=== PATIENT | male | born 2005 | race Caucasian/White ===

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

== ENCOUNTER 2024-12-04 13:32 | Emergency (ER) | payer OTHER, SELFPAY ==
--- NOTE | ~2024-12-04 | XR_ITS ---
XR hand LT min 3V 12/04/2024 14:19 INDICATION: Left hand pain PROCEDURE: 4 views left hand COMPARISON: No prior studies for comparison. FINDINGS: Fracture, dislocation or subluxation is not identified. The soft tissues appear within norm al limits. No foreign bodies are identified. IMPRESSION: 1: NO ACUTE BONE OR JOINT ABNORMALITY IDENTIFIED. Reviewed, dictated and finalized at location A.
[2024-12-04 13:43] VITALS: BP 102/79; PULSE 53; RESP 16; TEMP 36.7; O2SAT 98
--- OUTSIDE RECORDS SUMMARY | 2024-12-04 13:51 | XMS_ITS | Clinical Summary ---
Author Organization [facility] Address [address] [place] [address] Care Team Providers Care Java Manager Name Role Phone Dimple Belcher MD Primary Care Provider [phone] Allergies No known active allergies Medications albuterol HFA (PROVENTIL HFA,VENTOLIN HFA,PROAIR HFA) 90 mcg/actuation inhaler 02/11/2022 Active Active Problems Problem Noted Date Diagnosed Date Chronic midline low back pain without sciatica 0 11/10/2019 Pelvic obliquity 11/10/2019 RLQ abdominal pain 02/21/2018 Surgical History Surgery Date Site/Laterality Comments APPENDECTOMY Medical History Medical History Date Comments ADHD (attention deficit hyperactivity disorder) Family History Medical History Relation Name Comments Low Back Pain Father MRSA Father Hip Problems Mother Relation Name Status Comments Father Mother Social History Tobacco Use Types Packs/Day Years Used Date Smoking Tobacco: Never Alcohol Use Standard Drinks/Week Comments Never 0 (1 standard drink = 0.6 oz pur e alcohol) AUDIT-C Answer Date Recorded Q1: How often do you have a drink containing alc ohol? Never 10/27/2019 Average Number of Drinks Not on file 020 Frequency of Binge Drinking Not on file 06/2019 Personal Safety Answer Date Recorded Getting School Help Needed Not on file 06/07 Sex and Gender Information Value Date Recorded Sex Assigned at Not on file Legal Sex Male 2:27 PM CDT Gender Identity Not on file Sexual Orientation Not on file Obstetrics History Last Filed Vital Signs Vital Sign Reading Time Taken Comments Blood Pressure 102/68 06/07/2023 6:57 PM STYLE ADVISOR Pulse 74 06/07/2023 6:57 PM STYLE ADVISOR Temperature 36.6 C (97.9 F) 06/07/2023 6:57 PM STYLE ADVISOR Respiratory Rate 16 06/07/2023 6:57 PM STYLE ADVISOR Oxygen Saturation 98% 06/07/2023 6:57 PM STYLE ADVISOR Inhaled Oxygen Concentration - - Weight 63.5 kg (140 lb) 06/07/2023 6:57 PM STYLE ADVISOR Height 162.6 cm (5' 4) 06/07/2023 6:57 PM STYLE ADVISOR Body Mass Index 24.03 06/07/2023 6:57 PM STYLE ADVISOR Plan of Treatment Health Maintenance Due Date Last Done Comments Depression Screening 2003 Hepatitis C Screening 2003 HPV Vaccines (1 - Male 3-dos e series) 10/23/2018 Regular Well Visit/Exam 18-64 10/23/2021 Meningococcal B Vaccine (2 o f 2 - Trumenba SCDM 2-dose series) 05/15/2022 11/12/2021 Influenza Vaccine (#1) 2024 02/21/2018 DTaP/Tdap/Td Vaccine (7 - Td or Tdap) 11/17/2025 11/18/2015, 10/25/2007, 02/10/2005, Additional history exists Hepatitis B Screening Completed 05/01/2004 , 2003, 2003 Pneumococcal vaccine <65 Completed 005, 05/01/2004, 02/25/2004, Additional history exists Varicella Vaccines Completed 08/09/2008, 10/28/2004 Meningococcal Vaccine Completed 11/12/2021, 016 Insurance [employer] [facility] [employer] Address: [id number] [place] [address] [facility] [employer] Address: [address] [place] [address] [employer] Care Teams Java Manager Relationship Specialty Start Date End Date Dimple Belcher MD PCP - General 10/27/19
--- OUTSIDE RECORDS SUMMARY | 2024-12-04 13:51 | XMS_ITS | Continuity of Care Document ---
Author Name [facility] Organization [facility] Care Team Providers Care Twister Frame Tender Name Role Phone [facility] Unavailable Unavailable Procedures Combined list of: 1) Procedures from [facility] facilities going back up to thelast 18 months, not all VA non-surgical procedures are included; 2) All procedures from the Department of [facility] facilities. Procedure Procedure Type Code Date Perfomer Comments Sourc e No data available for this section Ambulatory P harmacy Social History Combined list of available smoking, tobacco, and other social history from [facility] facilities. Social History Type Response Date Comment Sourc e Sex Representation Male (finding) 01/13/2023 Un known Organization Sexual Orientation Ambula tory Pharmacy Gender identity Ambulator y Pharmacy Assessment and Plan Combined list of future care activities from [facility] facilities (e.g., assessment and plan notes, appointments, orders, and referrals). Additional future care activities may be listed in the Plan of Care section. Result Assessment and Plan Date Source Assessment and Plan Extracted from:Title : Education Note Author: BG SHARPE Date: 03/02/23 12/04/[address] [place] [address] Functional Status Combined list of recent functional and cognitive assessments recorded at [facility]VA Functional [place] Measurement (FIM) Scale: 1 = Total Assistance (Subject = 0% +), 2 = Maximal Assistance (Subject = 25% +), 3 = Moderate Assistance (Subject = 50% +), 4 = Minimal Assistance (Subject = 75% +), 5 = Supervision, 6 = Modified [place] (Device), 7 = Complete [place] (Timely, Safely). Assessment Date/Time Source Assessment Type Assessment Skill Assessment Score Assessment Details No data available for this section
--- NOTE | 2024-12-04 13:56 | ED_ITS ---
HPI - Extremity Injury (Upper) General Chief Complaint: Extremity Injury, Upper <Mariel DixonReji Kay APRN - Last Filed: 12/04/24 14:00> Stated Complaint: left hand injury <Marielcoleman Kay APRN - Last Filed: 12/04/24 14:00> Time Seen by Provider: 12/04/24 14:59 <Mariel Kay APRN - Last Filed: 12/04/24 14:00> Focused HPI: Patient is a 19-year-old male who presents to the ER after sustaining an injury to his left thumb. He reports he was working with tractor tires when a strap snapped back at him. Patient reports he immediately noticed blood on his L thumb, so he covered it up and came to the ER for evaluation. He is unsure when he had his last Tdap vaccine. Patient denies any medical history relevant to this ER visit. At time of examination patient rates the pain in his left thumb at a 2 to 3/10. GENERAL: Well-appearing, well-nourished, and in no acute distress. HEAD: Normocephalic, atraumatic. CHEST: Clear to auscultation. ?No respiratory distress. HEART: Regular rate and rhythm.? NEURO: ?Alert and oriented x3. Patient screened in triage and initial orders placed.? ?Additional care and disposition to be based upon?diagnostic testing and treatment. <Sumanth Meier MD - Last Filed: 12/04/24 20:29> History of Present Illness HPI narrative: Focused HPI: Patient is a 19-year-old male who presents to the ER after sustaining an injury to his left thumb. He reports he was working with tractor tires when a strap snapped back at him. Patient reports he immediately noticed blood on his L thumb, so he covered it up and came to the ER for evaluation. He is unsure when he had his last Tdap vaccine. Patient denies any medical history relevant to this ER visit. At time of examination patient rates the pain in his left thumb at a 2 to 3/10. GENERAL: Well-appearing, well-nourished, and in no acute distress. HEAD: Normocephalic, atraumatic. CHEST: Clear to auscultation. ?No respiratory distress. HEART: Regular rate and rhythm.? NEURO: ?Alert and oriented x3. Patient screened in triage and initial orders placed.? ?Additional care and disposition to be based upon?diagnostic testing and treatment. <Mariel Kay APRN - Last Filed: 12/04/24 14:00> I agree with the above HPI <Sumanth Meier MD - Last Filed: 12/04/24 20:29> Related Data Allergies/Adverse Reactions: Allergies Allergy/AdvReac Type Severity Reaction Status Date / Time No Known Allergies Allergy Verified 12/04/24 13:54 <Mariel Kay APRN - Last Filed: 12/04/24 14:00> Review of Systems Review of Systems: All systems reviewed & are unremarkable except as noted in HPI and below <Mariel Kay APRN - Last Filed: 12/04/24 14:00> Exam Narrative: APPEARANCE: Well appearing, no pain, no distress, well-nourished. HEAD: normocephalic, atraumatic. EYES: PERRLA/EOMI, conjunctivae clear. NOSE: Normal no drainage EARS:TMS clear with good light reflex. THROAT: Pharynx clear, no exudate. NECK: Supple. No adenopathy, no masses. RESPIRATORY: Airway patent, respirations nonlabored. Clear to auscultation bilaterally, no rales, rhonchi, wheezing. CARDIOVASCULAR: Regular rate and rhythm without murmurs rubs or gallops. ABDOMINAL: Soft, nontender, nondistended, normal bowel sounds MUSCULOSKELETAL: Moves all extremities. Strength/ROM intact, No edema, No calf tenderness. NEURO: Alert. Cranial nerves II through XII intact. Good gait. Good coordination SKIN: Laceration to dorsum of left hand <Sumanth Meier MD - Last Filed: 12/04/24 20:29> Course Vital Signs Vital signs: Vital Signs Temperature 98.1 F 12/04/24 13:43 Pulse Rate 53 L 12/04/24 13:43 Respiratory Rate 16 12/04/24 13:43 Blood Pressure 102/79 12/04/24 13:43 Pulse Oximetry 98 12/04/24 13:43 Oxygen Delivery Room Air 12/04/24 13:43 Temperature 98.1 F 12/04/24 13:43 Pulse Rate 74 12/04/24 16:40 Respiratory Rate 20 12/04/24 16:40 Blood Pressure 120/74 12/04/24 16:40 Pulse Oximetry 98 12/04/24 16:40 Oxygen Delivery Room Air 12/04/24 13:43 <Mariel Kay APRN - Last Filed: 12/04/24 14:00> Vital Signs Temperature 98.1 F 12/04/24 13:43 Pulse Rate 53 L 12/04/24 13:43 Respiratory Rate 16 12/04/24 13:43 Blood Pressure 102/79 12/04/24 13:43 Pulse Oximetry 98 12/04/24 13:43 Oxygen Delivery Room Air 12/04/24 13:43 Temperature 98.1 F 12/04/24 13:43 Pulse Rate 74 12/04/24 16:40 Respiratory Rate 20 12/04/24 16:40 Blood Pressure 120/74 12/04/24 16:40 Pulse Oximetry 98 12/04/24 16:40 Oxygen Delivery Room Air 12/04/24 13:43 <Sumanth Meier MD - Last Filed: 12/04/24 20:29> Procedures Laceration Laceration 1: Date: 12/04/24 <Sumanth Meier MD - Last Filed: 12/04/24 20:29> Time: 16:27 <Sumanth Meier MD - Last Filed: 12/04/24 20:29> Site: upper extremity <Sumanth Meier MD - Last Filed: 12/04/24 20:29> Side (If applicable): left <Sumanth Meier MD - Last Filed: 12/04/24 20:29> Size (cm): 4 <Sumanth Meier MD - Last Filed: 12/04/24 20:29> Description: flap and irregular <Sumanth Meier MD - Last Filed: 12/04/24 20:29> Depth: simple, single layer <Sumanth Meier MD - Last Filed: 12/04/24 20:29> Pre-repair: wound explored, irrigated, irrigated extensively and minor debridement <Sumanth Meier MD - Last Filed: 12/04/24 20:29> ====== Skin Level ======: Skin layer closed with: prolene <Sumanth Meier MD - Last Filed: 12/04/24 20:29> Size (cm): 4-0 <Sumanth Meier MD - Last Filed: 12/04/24 20:29> Number of sutures: 6 <Sumanth Meier MD - Last Filed: 12/04/24 20:29> Technique: simple, interrupted <Sumanth Meier MD - Last Filed: 12/04/24 20:29> ====== Subcutaneous Layer ======: ====== Muscle Layer ======: ====== Tendon Layer ======: MDM - Extremity Injury (Upper) MDM Narrative Medical decision making narrative: 19-year-old male present to the emergency department for evaluation for a laceration to the base of the left thumb. X-ray was negative for acute fracture dislocation. Laceration was repaired as described in the procedure note. Patient's tetanus was updated emergency department. Patient was started on Keflex emergency department provided Keflex for home. All questions concerns were addressed patient was well-appearing at time of discharge. <Sumanth Meier MD - Last Filed: 12/04/24 20:29> Differential Diagnosis Differential diagnosis: Likely fracture of hand <Sumanth Meier MD - Last Filed: 12/04/24 20:29> Imaging Data Radiologist's impression: Impressions Hand X-Ray 12/04/24 14:23 IMPRESSION: 1: NO ACUTE BONE OR JOINT ABNORMALITY IDENTIFIED. <Sumanth Meier MD - Last Filed: 12/04/24 20:29> Discharge Plan Discharge Clinical Impression: Complicated laceration of hand <Mariel Kay APRN - Last Filed: 12/04/24 14:00> Patient Disposition: Home <Mariel Kay APRN - Last Filed: 12/04/24 14:00> Condition: Stable <Mariel Kay APRN - Last Filed: 12/04/24 14:00> Instructions: Antibiotic Form, Laceration (ED) <Mariel Kay APRN - Last Filed: 12/04/24 14:00> Additional Instructions: Wound care as directed. Antibiotics as directed until completed. Sutures need to be removed in 7-10 days. Have close follow-up with your primary care physician. If you have any worsening symptoms then please call or return to the emergency department. <Mariel Kay APRN - Last Filed: 12/04/24 14:00> Patient Language: Croatian <Mariel Kay APRN - Last Filed: 12/04/24 14:00> Prescriptions: New cephalexin 500 mg capsule 500 mg PO BID 7 Days Qty: 14 0RF <Mariel Kay APRN - Last Filed: 12/04/24 14:00> Follow-up/Referrals: UNKNOWN,DOCTOR [Primary Care Provider] - <Mariel Kay APRN - Last Filed: 12/04/24 14:00>
--- OUTSIDE RECORDS SUMMARY | 2024-12-04 14:09 | XMS_ITS | Continuity of Care Document ---
Author Name [facility] Organization [facility] Care Team Providers Care Sub Prior Name Role Phone [facility] Unavailable Unavailable Procedures Combined list of: 1) Procedures from [facility] Veterans Affairs facilities going back up to thelast 18 months, not all VA non-surgical procedures are included; 2) All procedures from the Department of [facility] facilities. Procedure Procedure Type Code Date Perfomer [...] Note Author: BG SHARPE Date: 03/02/23 12/04/[address] [place] [address] Functional Status Combined list of recent functional and cognitive assessments recorded at [facility]VA Functional [place] Measurement (FIM) Scale: 1 = Total Assistance (Subject = 0% +), 2 = Maximal Assistance (Subject = 25% +), 3 = Moderate Assistance (Subject = 50% +), 4 = Minimal Assistance (Subject = 75% +), 5 = Supervision, 6 = Modified [place] (Device), 7 = Complete [place] (Timely, Safely). Assessment Date/Time Source Assessment Type Assessment Skill Assessment Score Assessment Details No data available for this section
[2024-12-04] MEDS: TETANUS,DIPHTHERIA,AC PERTUSSIS ADULT (0.5 ML) BOOSTRIX IM (14:29)
[2024-12-04 16:40] VITALS: BP 120/74; PULSE 74; RESP 20; O2SAT 98
[2024-12-04] MEDS: CEPHALEXIN 500 MG CAPSULE PO (16:40)
== END 2024-12-04 16:40 | disposition home or self-care (01) ==
PROVIDERS: Emergency Provider Emergency Medicine
DX: S61.012A Laceration without foreign body of left thumb without damage to nail, initial encounter (principal); Z23 Encounter for immunization; W20.8XXA Other cause of strike by thrown, projected or falling object, initial encounter
CPT/HCPCS: 12002; 73130; 90471; 90715; 99283; A9270